=== PATIENT | female | born 1985 | race Caucasian/White ===

== ENCOUNTER 2018-08-26 08:14 | Emergency (ER) | payer OTHER ==
[2018-08-26] MEDS: IBUPROFEN 600 MG TAB PO (08:53)
== END 2018-08-26 10:34 | disposition home or self-care (01) ==
LOC: FTE 10:34
DX: S86.912A Strain of unspecified muscle(s) and tendon(s) at lower leg level, left leg, initial encounter (principal); W18.39XA Other fall on same level, initial encounter; Y92.9 Unspecified place or not applicable
CPT/HCPCS: 29505; 73562; 99283-25